=== PATIENT | female | born 1960 | race Two or more races ===

== ENCOUNTER 2022-11-21 13:48 | Emergency (ER) | payer MEDICARE, OTHER ==
[~2022-11-21] VITALS: Ht 157.5 cm; Wt 99.8 kg
[~2022-11-21 13:48] MED LIST: HYDR25TA4 PO; IBUP-1953 PO; RAMI1.2527 PO
--- NOTE | 2022-11-21 14:10 | NUR ---
RECEIVED 62 YRS OLD FEMALE FROM HOME WALKING IN C/O ELEVATED BP AWAKE AND ALERT DINESES SOB OR CHEST PAIN
--- NOTE | 2022-11-21 14:35 | NUR ---
BLOOD DROW BY LAB TACH
--- NOTE | 2022-11-21 15:15 | NUR ---
TO CT SCAN OF HEAD
[2022-11-21 15:21] LABS: BASOPHILS # (AUTO) 0.1 K/uL (0.0-0.2); BASOPHILS % (AUTO) 0.8 % (0.0-2.0); EOSINOPHILS % (AUTO) 1.1 % (0.0-6.0); HEMATOCRIT 38 % (33-45); HEMOGLOBIN 11.9 g/dL (11.5-14.8); LYMPHOCYTES # (AUTO) 1.7 K/uL (0.8-4.8); LYMPHOCYTES % (AUTO) 20.1 % (20.0-44.0); MEAN CORPUSCULAR HGB CONC 31 g/dl (31.0-36.0); MEAN CORPUSCULAR VOLUME 81 fL (82-100); MONOCYTES # (AUTO) 0.4 K/uL (0.1-1.30); MONOCYTES % (AUTO) 4.7 % (2.0-12.0); NEUTROPHILS # (AUTO) 6.3 K/uL (1.8-8.9); NEUTROPHILS % (AUTO) 73.3 % (43.0-81.0); PLATELET COUNT (AUTO) 228 K/uL (150-450); RED BLOOD CELL COUNT(AUTO) 4.72 MIL/uL (4.0-5.2); WHITE BLOOD COUNT (AUTO) 8.6 K/uL (4.3-11.0)
[2022-11-21 15:36] LABS: ALBUMIN 3.6 g/dL (3.4-5.0); BILIRUBIN,DIRECT 0.1 mg/dL (0.0-0.2); BILIRUBIN,TOTAL 0.3 mg/dL (0.2-1.0); CALCIUM, SERUM 9.3 mg/dL (8.5-10.1); CREATININE 0.9 mg/dL (0.6-1.3); POTASSIUM 3.1 mmol/L (3.5-5.1); TOTAL PROTEIN, SERUM 7.5 g/dL (6.4-8.2)
[2022-11-21] MEDS ORDERED: POTASSIUM CHLORIDE 20 MEQ TAB.PRT.SR PO ONE ×2 (16:00→16:27)
[2022-11-21] MEDS ORDERED: KETOROLAC TROMETHAMINE 15 MG/ML VIAL ONE (16:27)
[2022-11-21] MEDS ORDERED: KETOROLAC TROMETHAMINE INJ 30 MG/ML VIAL IV ONE (16:30)
--- NOTE | 2022-11-21 16:47 | NUR ---
SPOHERRERA WITH PT AND FAMILY
--- NOTE | 2022-11-21 17:45 | NUR ---
DINESES HEADACH OR PAIN
--- NOTE | 2022-11-21 18:53 | NUR ---
AWAITING DIPOSITION OF PATIENT BY .
--- NOTE | 2022-11-21 18:54 | NUR ---
Patient discharged to home in stable condition. Written and verbal after care instructions given. Patient verbalizes understanding of instruction.
[2022-11-21 18:55] VITALS: BP 127/88
== END 2022-11-21 18:56 | disposition home or self-care (01) ==
LOC: ER 13:50
DX: R07.89 Other chest pain (principal); R51.9 Headache, unspecified; M79.602 Pain in left arm; I10 Essential (primary) hypertension; F17.200 Nicotine dependence, unspecified, uncomplicated; Z98.890 Other specified postprocedural states; Z90.710 Acquired absence of both cervix and uterus; Z79.899 Other long term (current) drug therapy
CPT/HCPCS: 99285; 96374; 70450; 71045; 93005; 85025; 80048; 80076; 36415; 84484 ×2; J1885

== ENCOUNTER 2023-09-25 18:43 | Emergency (ER) | payer MEDICARE, OTHER ==
[~2023-09-25] VITALS: Ht 162.6 cm; Wt 70.3 kg
[2023-09-25 19:37] VITALS: BP 136/80; TEMP 98.6
[2023-09-25] MEDS ORDERED: PRED50TA PO (20:53)
[2023-09-25] MEDS ORDERED: AZIT500T PO (20:53)
[2023-09-25] MEDS ORDERED: BENZ-13 PO (20:53)
[2023-09-25 21:02] VITALS: O2SAT 98
== END 2023-09-25 21:03 | disposition home or self-care (01) ==
LOC: ER 18:48
DX: J40 Bronchitis, not specified as acute or chronic (principal); I10 Essential (primary) hypertension; Z90.710 Acquired absence of both cervix and uterus
CPT/HCPCS: 71045-TC